=== PATIENT | male | born 1960 | race Caucasian/White ===

== ENCOUNTER 2017-04-22 09:27 | Emergency (ER) | payer BC ==
--- NOTE | ~2017-04-22 | ER ---
PATIENT'S NAME: RUPERTO HOANG [facility] AGE: 57 Y [address] ROOM: [place] [address] LOCATION: ED ADMIT DATE: 04/22/2017 ER/Outpatient Report DISCHARGE DATE: 04/22/2017 FAMILY PHYSICIAN: PHYSICIAN, NO ATTENDING PHYSICIAN: Matrin Dick CHIEF COMPLAINT: Right arm issue. HISTORY OF PRESENT ILLNESS: Shortly before 9 a.m., the patient was typing on his computer and developed difficulty controlling his right hand, specifically the thumb and index finger, although all fingers were affected to some extent and was causing significant difficulty with typing. He thinks that perhaps there may have been some changes in his vision associated with this, but these are transient and poorly described. He denies any other weakness or other symptoms at this time. He states that he is otherwise healthy. He does not have a primary care physician and only sees doctors whenever he does not feel well. He denies any medical allergies. He has not tried anything to make this better. PAST MEDICAL HISTORY: Documented on the record and have been reviewed by me. SOCIAL HISTORY: Documented on the record and have been reviewed by me. MEDICATIONS: Documented on the record and have been reviewed by me. ALLERGIES: DOCUMENTED ON THE RECORD AND HAVE BEEN REVIEWED BY ME. REVIEW OF SYSTEMS: All systems reviewed and negative except as noted in the HPI. PHYSICAL EXAMINATION: VITAL SIGNS: Blood pressure 176/101, pulse is 81, respiratory rate 17, temperature 96.5, and SpO2 is 97% on room air. Pain 0/10. GENERAL: Age-appropriate male, sitting upright on the exam table, in no obvious pain or distress. HEENT: Normocephalic, atraumatic. Eyes are PERRL. Oropharynx is clear. NECK: Supple. Trachea is midline. NEUROLOGIC: The patient is awake and alert. GCS is 15. No deficits of the cranial nerves, left upper extremity, or lower extremities. The right upper extremity is notable for weakness in the hand, particularly with extension of PATIENT'S NAME: RUPERTO HOANG [facility] AGE: 57 Y [address] ROOM: [place] [address] LOCATION: ED ADMIT DATE: 04/22/2017 ER/Outpatient Report DISCHARGE DATE: 04/22/2017 FAMILY PHYSICIAN: PHYSICIAN, NO ATTENDING PHYSICIAN: Martin Dick all the digits and ulnar deviation. There is weakness of the interossei. Email Production Consultant strength appears to be intact. The patient has difficulty with long adduction of the thumb, particularly doing thumb and pinky testing. He has no other specific complaints at this time. There is some slightly diminished sensation throughout the hand, though it is minimally affected. Extension at the wrist and flexion at the wrist appear to be intact and symmetric. The more proximal muscles do not appear to be affected. CHEST: Heart has regular rate and rhythm with no murmurs. Lungs are clear to auscultation bilaterally with no rhonchi, wheezes, or rales. ABDOMEN: Soft, nontender, and nondistended. No rebound or guarding. BACK: Normal to inspection and palpation. No abnormalities appreciated. EXTREMITIES: Warm and well perfused. No obvious deformities or edema. SKIN: Clean, dry, and intact. No rashes. LABORATORY DATA: Accu-Chek initially greater than 400, repeat at 370. CMS: No electrolyte abnormalities. Glucose is at 391. Renal function is notable for creatinine of 1. GFR greater than 60. Phosphorus of 2.8. Troponin is undetectable. Hemoglobin A1c is 12.1. CBC with hemoglobin of 17.6 and platelets of 138. Otherwise, grossly unremarkable. INR is 1. EKG: Sinus rhythm, rate of 85, with normal intervals and axis. No ischemia or dysrhythmia appreciated. Normal EKG, no comparison. CT of the brain is unremarkable. IMPRESSION: 1. Right ulnar nerve palsy. 2. New diagnosis of diabetes. EMERGENCY DEPARTMENT COURSE: The patient was seen and evaluated as above. Based on the acute onset of neurologic symptoms, there was concern for stroke, though the pattern did not appear to be central in origin. The initial exam was very difficult. The patient was very tense. The stroke protocol was initiated with his presentation, but a Code Stroke was not called. He had an elevated blood glucose, and the diagnosis of diabetes and neuropathy was entertained. Hemoglobin A1c is 12.1, confirming the diagnosis of diabetes. Dr. Corey, neurologist, did see the patient and has diagnosed isolated ulnar nerve palsy. The patient will have likely slow recovery of that issue. No other acute emergency medical conditions identified today. We will start him on metformin today. I contacted [facility], specifically Dr. Ailyn Mejias, physician, to help ensure followup. They will contact the patient to ensure followup for his diabetes management and to establish care. All questions answered, and the patient was discharged in good condition. PATIENT'S NAME: RUPERTO HOANG [facility] AGE: 57 Y [address] ROOM: [place] [address] LOCATION: [facility] ADMIT DATE: 04/22/2017 ER/Outpatient Report DISCHARGE DATE: 04/22/2017 FAMILY PHYSICIAN: PHYSICIANANGELINA ATTENDING PHYSICIAN: Martin Dick MD MAHAD DIXON/jose /[id number] d: 04/22/171652 t: 05/13/17 1644, OUTPATIENT REPORT
--- NOTE | ~2017-04-22 | CON ---
PATIENT'S NAME: RUPERTO HOANG [facility] AGE: 57 Y [address] ROOM: [place], [place] [address] LOCATION: [facility] ADMIT DATE: 04/22/2017 Consultation DISCHARGE DATE: 04/22/2017 FAMILY PHYSICIAN: PHYSICIAN, ANGELINA ATTENDING PHYSICIAN: Martin Dick DATE OF CONSULTATION: 04/22/2017 HISTORY OF PRESENT ILLNESS: The patient was seen in the ER at the request of Dr. Dick on 04/22/2017. The patient was sent home this morning. The patient came in after he developed some difficulty with manipulating his right hand. He specifically had difficulty in grasping objects with his right hand, though he had fairly good hand meal packer. His biggest deficit was pushing out his fingers, and he did have a bit of a finger drop. He actually had good power in to his wrists in extension, as well as median nerve power was otherwise normal. He denied any numbness into his hands or his forearm, though he did have some minor positive Tinel sign at the right elbow region. Neurology was just asked to comment on the nature of the patient's weakness, and whether this presented as a TIA or stroke-like syndrome considering his only deficit was the weakness in his hand. He denies any positive medical history. He is otherwise healthy. He denies being on any medications. ALLERGIES: NO KNOWN DRUG ALLERGIES. REVIEW OF SYSTEMS: EXTREMITIES: Essentially negative only for the presentation of the rather sudden onset of weakness into his right hand. The patient does do a lot of typing. He denied any injury to his hand or overuse syndrome. PHYSICAL EXAMINATION: GENERAL: The patient is a healthy-appearing male, in no acute distress. VITAL SIGNS: Listed was a pulse of 81, respirations were 17, blood pressure was 176/95, and temperature was afebrile. NEUROLOGICAL: Cranial nerves grossly II through XII were intact. His motor exam revealed good power in his left proximal and distal muscles of the upper and lower extremities and the right lower extremity. He had normal power, bulk, and tone of his lower extremities. In the right upper extremity, he had difficulty in pushing out his fingers in an extension manner. He also had weakness in the adductor digiti minimi muscle as well as the first dorsal interossei muscle, whereby the thumb and the second digit would come together. This action was weak, but otherwise a full and normal hand meal packer. Wrist extension power was excellent. Triceps power, biceps power, and other proximal muscle power of the upper arm was all within normal limits. Reflex PATIENT'S NAME: RUPERTO HOANG [facility] AGE: 57 Y [address] ROOM: [place], [place] [address] LOCATION: [facility] ADMIT DATE: 04/22/2017 Consultation DISCHARGE DATE: 04/22/2017 FAMILY PHYSICIAN: PHYSICIAN, NO ATTENDING PHYSICIAN: Martin Dick at the elbow was intact, as well as the biceps is intact. He had a bit of a positive Tinel's at the right elbow. IMPRESSION AND PLAN: The findings today do suggest an ulnar neuropathy process likely at the elbow. This could be simply from a neurapraxia such as leaning on the elbow. Informed by Dr. Dick that the patient actually does come in with a hemoglobin that was elevated to around 12, and it suggested that the patient likely has diabetes. This will certainly put him at the risk for having a compression neuropathy. Since the ulnar muscles do control the dorsal interossei muscles, they would cause him to have weakness in finger extension as this tends to be the added action with radial nerve distribution, with the radial nerve extending out of the fingers. The obvious weakness to the adductor digiti minimi muscle and to the first dorsal interossei is mnemonic here. He has full power of the median supplied muscles and of the radial supplied muscles. If he does have a bit of numbness, it is only relegated to the medial portion of the hand, but it was really just transitory. I discussed with the patient that this type of neuropathy will likely improve on its own, but the time course especially with his new onset of diabetes is unknown. A nerve conduction study EMG could be considered, but since this is a new neuropathy, we would usually wait at least 14 days for a nerve conduction study if it is necessary. I am told that the patient is likely going to follow up in [facility] for the evaluation of his diabetes, and we could certainly see him on neurologic followup in our Clinic. MASTERMD VERONICA CUNNINGHAM/modl /[id number] d: 04/26/17 0518 t: 05/01/17 1748, CONSULTATION REPORT
[2017-04-22 10:11] LABS: BASOPHIL # 0.1 K/uL (0.0-0.2); BASOPHIL % 0.7 %; EOSINOPHIL # 0.1 K/uL (0.0-0.5); EOSINOPHIL % 1.4 %; HEMATOCRIT 50.6 % (37.0-53.0); HEMOGLOBIN 17.6 g/dL (12.0-17.0); IMMATURE GRANULOCYTE % 0.1 %; LYMPHOCYTE # 2.8 K/uL (0.8-4.0); MCH 29.3 pg (27.0-34.0); MCHC 34.8 gm/dL (32.0-36.5); MCV 84.2 fl (83.0-98.0); MONOCYTE # 0.4 K/uL (0.0-1.0); MONOCYTE % 6.1 %; MPV 12.3 fl (9.4-12.4); NEUTROPHIL # (ANC) 3.8 K/uL (1.4-9.0); NEUTROPHIL % 52.7 %; NRBC % 0 /100WBC (0-0.00); PLATELET COUNT 138 K/uL (150-450); RBC 6.01 M/uL (4.00-6.00); RDW-CV 12.1 % (11.9-14.6); WBC 7.2 K/uL (4.0-11.0)
[2017-04-22 10:51] LABS: INR - (THERAPEUTIC) 0.95 (0.92-1.07); PTT 25 SECONDS (25-32)
[2017-04-22 11:00] LABS: ALBUMIN 3.5 gm/dL (3.5-5.0); ANION GAP 12.3 (10.0-19.0); BLOOD UREA NITROGEN 13 mg/dL (6-24); CALCIUM 8.6 mg/dL (8.5-10.5); CHLORIDE 103 mMol/L (96-110); CO2 25 mMol/L (22-32); ESTIMATED GFR (MDRD EQUATION) > 60; PHOSPHORUS 2.8 mg/dL (2.5-4.9); POTASSIUM 4.3 mMol/L (3.7-5.1); SODIUM 136 mMol/L (135-145)
== END 2017-04-22 11:07 | disposition disaster alternative care site (69) ==
LOC: GMED 09:27
PROVIDERS: Emergency Medicine
DX: G56.21 Lesion of ulnar nerve, right upper limb (principal); E11.9 Type 2 diabetes mellitus without complications; R53.1 Weakness